=== PATIENT | male | born 2000 | race Caucasian/White ===

== ENCOUNTER 2020-04-11 19:07 | Emergency (ER) | payer OTHER ==
[~2020-04-11] VITALS: Ht 172.7 cm; Wt 63.5 kg
[2020-04-11] MEDS ORDERED: NS IV 1000 ML 1,000 ML IV STA (19:27)
--- NOTE | 2020-04-11 19:31 | ED Syncope ---
General Chief Complaint: Dizziness/Syncope Stated Complaint: LIGHTHEADED Source of Information: Patient, EMS, EMS Notes Reviewed, RN/MD, RN Notes Reviewed Exam Limitations: No Limitations (YOLANDA CALHOUN MD) History of Present Illness Date Seen by Provider: Apr 11, 2020 Time Seen by Provider: 06:10 Initial Comments This patient presents to the emergency department with a complaint of syncope. Patient was reportedly at a local restaurant/bar called [employer] with his father and his dad is waiting to be seated stated he started feeling little pain in his jaw and felt lightheaded and passed out. EMS reports that the patient's heart rate dropped down in the 30s during transport. Patient states last time he had a syncopal episode was after seen and needle given a hepatitis shot. Patient denies any cardiac issues. We'll do medical evaluation treatment is needed Timing/Prior Episodes: Recent History Symptoms Prior to Episode: None, Lightheadedness Precipitating Factors: None, Standing Loss of Consciousness: Brief (Seconds) (YOLANDA CALHOUN MD) Allergies and Home Medications Allergies Coded Allergies: No Known Drug Allergies (Unverified , 04/11/20) Patient Home Medication List Home Medication List Reviewed: Yes (YOLANDA CALHOUN MD) Review of Systems Constitutional: No no symptoms reported; see HPI; No chills, No diaphoresis, No dizziness, No fever, No malaise, No weakness, No weight gain, No weight loss, No other EENTM: No see HPI, No no symptoms reported, No ear discharge, No hearing loss, No ear pain, No blurred vision, No double vision, No eye pain, No tearing, No vision loss, No dental problems, No hoarseness, No mouth pain, No mouth swelling, No epistaxis, No nose congestion, No nose pain, No throat pain, No throat swelling, No other Respiratory: No no symptoms reported, No see HPI, No cough, No dyspnea on exe rtion, No hemoptysis, No orthopnea, No phlegm, No short of breath, No stridor, No wheezing, No other Cardiovascular: No no symptoms reported, No see HPI, No chest pain, No edema, No Hx of Intervention, No palpitations; syncope; No vascular heart diseas, No other Gastrointestinal: No RUQ, No LUQ, No RLQ, No LLQ, No no symptoms reported, No see HPI, No abdominal pain, No constipation, No diarrhea, No dysphagia, No hematemesis, No heartburn, No jaundice, No loss of appetite, No melena, No nausea, No vomiting, No other Genitourinary: No no symptoms reported, No see HPI, No decreased output, No discharge, No dysuria, No frequency, No hematuria, No hesitancy, No incontinence, No nocturia, No pain, No other Musculoskeletal: No no symptoms reported, No see HPI, No back pain, No gout, No joint pain, No joint swelling, No muscle pain, No muscle stiffness, No muscle cramps, No muscle twitching, No muscle weakness, No neck pain, No other Skin: No no symptoms reported, No see HPI, No change in color, No change in hair/nails, No dryness, No hx of skin cancer, No lesions, No lumps, No pruritus, No rash, No other (YOLANDA CALHOUN MD) All Other Systems Reviewed Negative Unless Noted: Yes (YOLANDA CALHOUN MD) Past Paspnop-Xbzdrw-Pmewuk Hx Patient Social History Recent Foreign Travel: No Contact w/Someone Who Travel: No (YOLANDA CALHOUN MD) Physical Exam Vital Signs Vital Signs - First Documented 04/11/20 19:30 Temp 35.9 Pulse 66 Resp 14 B/P (MAP) 100/45 Pulse Ox 99 O2 Delivery Nasal Cannula O2 Flow Rate 2.00 (SUSIE SMITH MD) Vital Signs Capillary Refill : (YOLANDA CALHOUN MD) Height, Weight, BMI Height: '" Weight: lbs. oz. kg; BMI Method: General Appearance: No Apparent Distress, WD/WN Cardiovascular: Regular Rate, Rhythm, No Edema, No Gallop, No JVD, No Murmur, Normal Peripheral Pulses Respiratory: Chest Non Tender, Lungs Clear, Normal Breath Sounds, No Accessory Muscle Use, No Respiratory Distress Gastrointestinal: Normal Bowel Sounds, No Organomegaly, No Pulsatile Mass, Non Tender, Soft Back: Normal Inspection, No CVA Tenderness, No Vertebral Tenderness Extremities: Normal Capillary Refill, Normal Inspection, Normal Range of Motion, Non Tender, No Calf Tenderness, No Pedal Edema Neurologic/Psychiatric: Alert, Oriented x3, No Motor/Sensory Deficits, Normal Mood/Affect Cranial Nerves: Normal Hearing, Normal Speech, PERRL Skin: Normal Color, Warm/Dry, Cool (YOLANDA CALHOUN MD) Progress/Results/Core Measures Results/Orders Lab Results Laboratory Tests Test 04/11/20 19:20 04/11/20 19:30 Range/Units White Blood Count 10.4 4.3-11.0 10^3/uL Red Blood Count 5.08 4.35-5.85 10^6/uL Hemoglobin 15.0 13.3-17.7 G/DL Hematocrit 43 40-54 % Mean Corpuscular Volume 84 80-99 FL Mean Corpuscular Hemoglobin 30 25-34 PG Mean Corpuscular Hemoglobin Concent 35 32-36 G/DL Red Cell Distribution Width 12.8 10.0-14.5 % Platelet Count 287 130-400 10^3/uL Mean Platelet Volume 10.3 7.4-10.4 FL Immature Granulocyte % (Auto) 0 % Neutrophils (%) (Auto) 44 42-75 % Lymphocytes (%) (Auto) 46 H 12-44 % Monocytes (%) (Auto) 7 0-12 % Eosinophils (%) (Auto) 2 0-10 % Basophils (%) (Auto) 1 0-10 % Neutrophils # (Auto) 4.6 1.8-7.8 X 10^3 Lymphocytes # (Auto) 4.7 H 1.0-4.0 X 10^3 Monocytes # (Auto) 0.7 0.0-1.0 X 10^3 Eosinophils # (Auto) 0.2 0.0-0.3 10^3/uL Basophils # (Auto) 0.1 0.0-0.1 10^3/uL Immature Granulocyte # (Auto) 0.0 0.0-0.1 10^3/uL Sodium Level 140 135-145 MMOL/L Potassium Level 3.1 L 3.6-5.0 MMOL/L Chloride Level 105 98-107 MMOL/L Carbon Dioxide Level 21 21-32 MMOL/L Anion Gap 14 5-14 MMOL/L Blood Urea Nitrogen 19 H 7-18 MG/DL Creatinine 1.13 0.60-1.30 MG/DL Estimat Glomerular Filtration Rate > 60 BUN/Creatinine Ratio 17 Glucose Level 126 H 70-105 MG/DL Calcium Level 9.5 8.5-10.1 MG/DL Corrected Calcium 8.5-10.1 MG/DL Total Bilirubin 0.9 0.1-1.0 MG/DL Aspartate Amino Transf (AST/SGOT) 18 5-34 U/L Alanine Aminotransferase (ALT/SGPT) 5 0-55 U/L Alkaline Phosphatase 68 40-136 U/L Troponin I < 0.30 <0.30 NG/ML Pro-B-Type Natriuretic Peptide 27.2 <75.0 PG/ML Total Protein 7.3 6.4-8.2 GM/DL Albumin 4.6 H 3.2-4.5 GM/DL Serum Alcohol < 10 <10 MG/DL Urine Color YELLOW Urine Clarity CLEAR Urine pH 6.0 5-9 Urine Specific Dixon 1.025 H 1.016-1.022 Urine Protein NEGATIVE NEGATIVE Urine Glucose (UA) NEGATIVE NEGATIVE Urine Ketones NEGATIVE NEGATIVE Urine Nitrite NEGATIVE NEGATIVE Urine Bilirubin NEGATIVE NEGATIVE Urine Urobilinogen 0.2 < = 1.0 MG/DL Urine Leukocyte Esterase NEGATIVE NEGATIVE Urine RBC (Auto) NEGATIVE NEGATIVE Urine RBC NONE /HPF Urine WBC RARE /HPF Urine Squamous Epithelial Cells NONE /HPF Urine Crystals NONE /LPF Urine Bacteria NEGATIVE /HPF Urine Casts NONE /LPF Urine Mucus MODERATE H /LPF Urine Culture Indicated NO Urine Opiates Screen NEGATIVE NEGATIVE Urine Oxycodone Screen NEGATIVE NEGATIVE Urine Methadone Screen NEGATIVE NEGATIVE Urine Propoxyphene Screen NEGATIVE NEGATIVE Urine Barbiturates Screen NEGATIVE NEGATIVE Ur Tricyclic Antidepressants Screen NEGATIVE NEGATIVE Urine Phencyclidine Screen NEGATIVE NEGATIVE Urine Amphetamines Screen NEGATIVE NEGATIVE Urine Methamphetamines Screen NEGATIVE NEGATIVE Urine Benzodiazepines Screen NEGATIVE NEGATIVE Urine Cocaine Screen NEGATIVE NEGATIVE Urine Cannabinoids Screen NEGATIVE NEGATIVE (SUSIE SMITH MD) My Orders Orders - SUSIE SMITH MD Potassium Chloride (Tablet) (Klor Con Ta (04/11/20 20:15) (SUSIE SMITH MD) Medications Given in ED Current Medications Medications Dose Ordered Sig/Angel Route Start Time Stop Time Status Last Admin Dose Admin Potassium Chloride 40 meq ONCE ONCE PO 04/11/20 20:15 04/11/20 20:16 DC 04/11/20 20:26 40 MEQ (SUSIE SMITH MD) Vital Signs/I&O 04/11/20 04/11/20 04/11/20 19:30 19:32 20:50 Temp 35.9 35.9 Pulse 66 58 60 60 74 Resp 14 14 B/P (MAP) 100/45 100/45 (63) 109/58 (75) 98/58 (71) Pulse Ox 99 99 O2 Delivery Nasal Cannula Nasal Cannula O2 Flow Rate 2.00 2.00 (SUSIE SMITH MD) Progress Progress Note : Progress Note Care of this patient was assumed from Dr. Calhoun at shift change. He remained asymptomatic throughout his ER stay. A liter of IV fluid was infused. Work-up was unremarkable except for hypokalemia with a potassium of 3.1. Potassium 40 mEq p.o. was given. Case was reviewed with Dr. Suarez who would like to follow- up with the patient in the clinic for cardiac monitoring and consultation. There was suspicion for vasovagal response. Patient was provided education and handouts were given at discharge. Questions were answered. (SUSIE SMITH MD) Initial ECG Impression Date: Apr 11, 2020 Initial ECG Impression Time: 19:14 Initial ECG Rate: 61 Initial ECG Rhythm: Normal Sinus Initial ECG Intervals: Normal Initial ECG Impression: Nonspecific Changes Comment Sinus rhythm with nonspecific T wave heart rate 61 (YOLANDA CALHOUN MD) Diagnostic Imaging Diagonstic Imaging: Xray Plain Films/CT/US/NM/MRI: chest Comments Chest x-ray viewed by me and report reviewed. See report below: NAME: JUNI MITCHELL MED REC#: [id number] PT STATUS: REG ER : 2000 PHYSICIAN: YOLANDA CALHOUN MD ADMIT DATE: 04/11/20/ER FS Signed Date of Exam:04/11/20 CHEST 1 VIEW AP/PA ONLY Indication: Syncope, jaw pain Portable chest 7:26 PM Heart size and pulmonary vascularity are normal. Lungs are clear. There are no effusions or pneumothoraces. IMPRESSION: Negative chest Dictated by: Dictated on workstation # [id number] Dict: 04/11/201933 Trans: 04/11/201933 TB [id number] Interpreted by: JESSICA LAW MD Electronically signed by: JESSICA LAW MD 04/11/201933 (SUSIE SMITH MD) Departure Impression Primary Impression: Syncope and collapse Additional Impression: Hypokalemia Disposition: 01 HOME, SELF-CARE Condition: Improved Departure-Patient Inst. Decision time for Depature: 20:23 (SUSIE SMITH MD) Referrals: TAMMIE SUAREZ MD ,LOCAL PHYSICIAN (PCP) Primary Care Physician Patient Instructions: Syncope (Fainting) (DC), Hypokalemia, Vasovagal Response Add. Discharge Instructions: Follow-up with your primary care provider and Dr. Suarez (glass tube bender) as soon as possible. Call in the morning to arrange an appointment. See contact information below. Eat a well-balanced diet with plenty of foods and liquids that contain potassi um. Your low potassium today may have contributed to the syncope. Your syncope may have been related to a vasovagal response. Please see the handout information attached. Avoid any unnecessary activities that could cause you harm if you had another syncopal episode until after you are evaluated by the glass tube bender. Return to the emergency room if you have any further problems or concerns or recurrent episodes of syncope. All discharge instructions reviewed with patient and/or family. Voiced understanding. Copy Copies To 1: TAMMIE SUAREZ MD, BRIAN W MD Apr 11, 2020 19:31 SUSIE SMITH MD Apr 11, 2020 19:49
[2020-04-11 19:32] VITALS: BP_SYST 100; BP_SYST 109; BP_SYST 98; BP_DIAS 45; BP_DIAS 58
--- NOTE | 2020-04-11 19:36 | Diagnostic Imaging Report ---
Indication: Syncope, jaw pain Portable chest 7:26 PM Heart size and pulmonary vascularity are normal. Lungs are clear. There are no effusions or pneumothoraces. IMPRESSION: Negative chest Dictated by: Dictated on workstation # [id number]
[2020-04-11 19:45] LABS: COLOR,URINE YELLOW
[2020-04-11 19:46] LABS: BACTERIA,URINE NEGATIVE /HPF; BILIRUBIN,URINE NEGATIVE (NEGATIVE); CLARITY,URINE CLEAR; GLUCOSE, URINE (UA) NEGATIVE (NEGATIVE); KETONES,URINE NEGATIVE (NEGATIVE); LEUKOCYTE ESTERASE ,URINE NEGATIVE (NEGATIVE); NITRITE,URINE NEGATIVE (NEGATIVE); PROTEIN,URINE NEGATIVE (NEGATIVE); WBC,URINE RARE /HPF
[2020-04-11 19:47] LABS: BASOPHILS % (AUTO) 1 % (0-10); EOSINOPHILS % (AUTO) 2 % (0-10); HEMATOCRIT 43 % (40-54); LYMPHOCYTES # (AUTO) 4.7 X 10^3 (1.0-4.0); LYMPHOCYTES % (AUTO) 46 % (12-44); MEAN CORPUSCULAR HEMOGLOBIN 30 PG (25-34); MEAN CORPUSCULAR HGB CONC 35 G/DL (32-36); MEAN CORPUSCULAR VOLUME 84 FL (80-99); MEAN PLATELET VOLUME 10.3 FL (7.4-10.4); MONOCYTES # (AUTO) 0.7 X 10^3 (0.0-1.0); MONOCYTES % (AUTO) 7 % (0-12); NEUTROPHILS # (AUTO) 4.6 X 10^3 (1.8-7.8); NEUTROPHILS % (AUTO) 44 % (42-75); PLATELET COUNT 287 10^3/uL (130-400); WHITE BLOOD COUNT 10.4 10^3/uL (4.3-11.0)
[2020-04-11 19:48] LABS: BASOPHILS # (AUTO) 0.1 10^3/uL (0.0-0.1); EOSINOPHILS # (AUTO) 0.2 10^3/uL (0.0-0.3)
[2020-04-11 19:49] LABS: AMPHETAMINE SCREEN, URINE NEGATIVE (NEGATIVE); BARBITURATE SCREEN URINE NEGATIVE (NEGATIVE); BENZODIAZEPINES SCREEN URINE NEGATIVE (NEGATIVE); CANNABINOID SCREEN, URINE NEGATIVE (NEGATIVE); COCAINE SCREEN URINE NEGATIVE (NEGATIVE); METHADONE STAT NEGATIVE (NEGATIVE); METHAMPHETAMINE SCREEN URINE S NEGATIVE (NEGATIVE); OPIATE SCREEN URINE NEGATIVE (NEGATIVE); OXYCODONE STAT NEGATIVE (NEGATIVE); PROPOXYPHENE STAT NEGATIVE (NEGATIVE); TRICYCLIC ANTIDEPRESSANTS SCRE NEGATIVE (NEGATIVE)
[2020-04-11 20:01] LABS: CARBON DIOXIDE 21 MMOL/L (21-32); CHLORIDE 105 MMOL/L (98-107); POTASSIUM 3.1 MMOL/L (3.6-5.0); SODIUM 140 MMOL/L (135-145)
[2020-04-11 20:02] LABS: ALANINE AMINOTRANSFERASE 5 U/L (0-55); ALBUMIN 4.6 GM/DL (3.2-4.5); ALKALINE PHOSPHATASE 68 U/L (40-136); BILIRUBIN,TOTAL 0.9 MG/DL (0.1-1.0); BUN/CREATININE RATIO 17; CALCIUM 9.5 MG/DL (8.5-10.1); CREATININE SERUM 1.13 MG/DL (0.60-1.30); GFR ESTIMATED > 60; GLUCOSE 126 MG/DL (70-105); TOTAL PROTEIN 7.3 GM/DL (6.4-8.2)
[2020-04-11] MEDS ORDERED: KCL 10 MEQ TAB (MICRO K) PO ONE (20:15)
== END 2020-04-11 20:50 | disposition home or self-care (01) ==
LOC: ER FS 19:09
DX: R55 Syncope and collapse (principal); E87.6 Hypokalemia
CPT/HCPCS: 36415; 71045; 80053; 80306; 81000; 83880; 84484; 85025; G0480; 80320; 93005

== ENCOUNTER → 2020-05-07 | Outpatient (CLI) | payer OTHER | LOC: CARD 14:30 | PROVIDERS: ATTEND Internal Medicine Cardiovascular Disease | DX: R00.1 Bradycardia, unspecified (principal); R55 Syncope and collapse | CPT/HCPCS: 93306 ==

== ENCOUNTER → 2020-05-08 | Outpatient (CLI) | payer OTHER ==
[2020-05-08 11:52] LABS: BUN/CREATININE RATIO 9; CARBON DIOXIDE 27 MMOL/L (21-32); CHLORIDE 106 MMOL/L (98-107); CREATININE SERUM 1.09 MG/DL (0.60-1.30); GFR ESTIMATED > 60; POTASSIUM 4.1 MMOL/L (3.6-5.0); SODIUM 141 MMOL/L (135-145)
[2020-05-08 11:53] LABS: GLUCOSE 115 MG/DL (70-105)
== END ==
LOC: LAB FS 09:47
PROVIDERS: ATTEND Internal Medicine Cardiovascular Disease
DX: R00.1 Bradycardia, unspecified (principal); R55 Syncope and collapse
CPT/HCPCS: 36415; 80048

== ENCOUNTER → 2020-05-09 | Outpatient (CLI) | payer OTHER ==
[2020-05-09 10:20] VITALS: BP 128/74
--- NOTE | 2020-05-09 14:49 | Cardiology Stress Test Report ---
Stress Test Report Date of Procedure/Referring: Date of Procedure: May 09, 2020 PCP Tania Ames Admitting Physician No,Local Physician Indications: Chest pain Baseline Heart Rate: 52 Baseline Blood Pressure: Blood Pressure Systolic: 128 Blood Pressure Diastolic: 74 Baseline EKG: Baseline EKG: normal sinus rhythm Summary/Conclusion: Summary: In summary, the patient started exercising with a baseline heart rate, blood pressure and EKG mentioned above Patient was able to exercise for a total of 12:30minutes on Raghu protocol, METs 12.9 Maximum heart rate 180 Maximum blood pressure 199/68 Stress EKG, Minimal nondiagnostic changes Recovery EKG , Return to baseline Conclusion: 1. Good exercise tolerance for a total of 12:30 minutes on Raghu protocol, 12.9 METs, achieving 89 percent of maximum expected heart rate 2. Minimal nondiagnostic EKG changes with exercise returned to baseline during recovery 3. No arrhythmia was noted TAMMIE SEYMOUR MD May 09, 2020 14:49
== END ==
LOC: CARD 10:30
PROVIDERS: ATTEND Physician Assistant
DX: R07.9 Chest pain, unspecified (principal); R00.1 Bradycardia, unspecified; R55 Syncope and collapse